=== PATIENT | male | born 1975 | race Caucasian/White ===

== ENCOUNTER → 2023-03-04 15:47 | Outpatient (CLI) | payer OTHER, SELFPAY ==
--- NOTE | ~2023-03-04 | MR_ITS ---
EXAMINATION: MR knee RT wo con DATE: 03/04/2023 16:16 INDICATION: Acute onset medial sided right knee pain TECHNIQUE: Magnetic resonance imaging (MRI) of the right knee was performed without intravenous contr ast. Sequences included coronal PD-weighted FSE, coronal PD-weighted FS FSE, sagittal T2-weighted FS E, sagittal PD-weighted FS FSE and axial PD weighted fat saturated FSE. COMPARISON: None. FINDINGS: Medial compartment: Complex tear of the medial meniscus with a longitudinal horizontal tear plane extending to the inferi or articular surface of the posterior body and posterior horn. There is a secondary radial tear plane versus more irregular degeneration involving the meniscus inferior to the tear plane at the posterio r horn. There is a small para meniscal cyst originating at the periphery of the posterior horn . To o riginate at the level of the radial tear and tracking 2.5 cm laterally to posterior to the tibial ins ertion of the posterior cruciate ligament. The cyst measures up to 11 x 5 mm maximal orthogonal dimen sions. Partial-thickness chondral ulceration involving less than 50% the cartilage thickness along the anter ior to central weightbearing medial femoral condyle with a deeper fissure without degenerative subcho ndral changes at the posterior aspect of the region of ulceration. There is additional chondral ulcer ation and deep fissuring with underlying cystlike and edema-like marrow signal changes and small mary grace inal osteophytes along the posterior and medial margins of the medial tibial plateau underlying the r egion of the meniscal tear. Lateral compartment: Similar complex tear of the lateral meniscus with longitudinal horizontal tear extending to the super ior articular surface of the body and posterior horn of the lateral meniscus and small radial tear in volving the free edge and inner half of the midportion of the posterior horn. Additional partial thickness chondral ulceration and fissuring involving up to 50% the cartilage thic kness at the anterior to central weightbearing medial femoral condyle and central to posterior aspect of the lateral tibial plateau, both without degenerative subchondral changes. Patellofemoral compartment: Full-thickness chondral ulceration with prominent underlying cortical irregularity and subarticular c ystlike changes with surrounding sclerosis and edema-like signal change involving the medial half of the mid to inferior aspect of the lateral trochlea extending to the trochlear groove. Less severe par tial thickness chondral fissuring with additional subarticular edema-like signal change and likely de veloping cystlike change at the central aspect of the medial trochlea. Moderate-sized region of mild partial thickness patellar cartilage loss with deeper fissuring but without degenerative subchondral changes centered at the midpoint of the apical ridge. Ligaments and tendons: Anterior and posterior cruciate ligaments are normal. Thickening of the proximal medial collateral li gament consistent with scarring related to chronic sprain with more clearly delineated partial tear a long its anterior margin but without surrounding soft tissue edema to suggest acute injury. The fibul ar collateral ligament is normal. There are tendon is normal. Mild quadriceps tendinopathy without te ar. The visualized medial and lateral hamstring tendons as well as the iliotibial band are normal. Fluid: Small knee joint effusion with mild synovitis at the suprapatellar pouch. Additional synovitis seen o n the posterior inferior margin of Hoffa's fat pad and at the posterior recesses. No loose osteochond ral bodies identified. Osseous/other: Bone alignment is normal. No fracture or pathologic marrow replacing process. IMPRESSION: 1. Complex tears of the medial and lateral menisci. 2. 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
== END ==
PROVIDERS: PCP Internal Medicine; Visit Provider Physician Assistant
DX: S83.241A Other tear of medial meniscus, current injury, right knee, initial encounter (principal); T14.90XA Injury, unspecified, initial encounter
CPT/HCPCS: 73721

== ENCOUNTER 2023-05-27 07:58 | Outpatient (CLI) | payer OTHER, SELFPAY ==
[2023-05-27 11:33] LABS: Eosinophils Absolute Auto 0.1 K/mm3 (0-0.3); Eosinophils Percent Auto 2.3 % (0-4.4); Hemoglobin 17.2 g/dL (14.0-18.0); Immature Granulocyte Absolute 0.01 K/mm3 (0.00-0.031); Immature Granulocyte Percent A 0.3 % (0-0.5); Lymphocytes Absolute Auto 1.44 K/mm3 (0.9-3.2); Lymphocytes Percent Auto 37.5 % (18.3-44.2); Mean Corpuscular HGB Conc 33.7 g/dl (32-36); Mean Corpuscular Hemoglobin 31.9 pg (26-34); Mean Corpuscular Volume 94.4 fl (80-100); Mean Platelet Volume 9.5 fl (7.4-10.4); Monocytes Absolute Auto 0.5 K/mm3 (0.1-0.6); Monocytes Percent Auto 12.2 % (2.6-8.5); Neutrophils Absolute Auto 1.8 K/mm3 (1.3-6.7); Neutrophils Percent Auto 46.7 % (45.5-73.1); Platelet Count Result 207 k/mm3 (150-375); Red Cell Distribution Width 12.6 % (11.5-14.5); White Blood Count 3.8 K/mm3 (4.5-10.0)
[2023-05-27 11:59] LABS: Alanine Aminotransferase 21 U/L (6-50); Albumin Level 3.9 g/dL (3.5-5.1); Alkaline Phosphatase 62 U/L (38-126); Anion Gap 8 mmol/L (8-16); Aspartate Amino Transferase 73 U/L (17-59); Bilirubin,Total 0.8 mg/dL (0.2-1.3); Blood Urea Nitrogen 17 mg/dL (9-20); Calcium 8.6 mg/dL (8.4-10.2); Carbon Dioxide 30 mmol/L (22-30); Chloride 101 mmol/L (98-107); Estimated Glomerular Filt Rate > 60; Glucose 78 mg/dL (65-110); Potassium 4.2 mmol/L (3.4-5.0); Sodium 139 mmol/L (137-145)
[2023-05-27 12:33] LABS: Prostate Specific Antigen 0.7 ng/mL (< OR = 4.0)
[2023-05-31 14:15] LABS: Testosterone Free 311.2; Testosterone Total 1140
== END 2023-05-27 07:59 | disposition home or self-care (01) ==
LOC: ANHGOSHLAB 08:01
PROVIDERS: PCP Internal Medicine; Visit Provider Internal Medicine
DX: Z51.81 Encounter for therapeutic drug level monitoring (principal); Z79.890 Hormone replacement therapy; D75.1 Secondary polycythemia; R79.89 Other specified abnormal findings of blood chemistry
CPT/HCPCS: 36415; 80053; 84153; 84402; 84403; 85025

== ENCOUNTER 2023-12-29 07:52 | Outpatient (CLI) | payer OTHER, SELFPAY ==
[2023-12-29 14:40] LABS: Hematocrit 53.7 % (42.0-52.0); Mean Corpuscular HGB Conc 33.5 g/dl (32-36); Mean Corpuscular Hemoglobin 31.9 pg (26-34); Mean Platelet Volume 9.4 fl (7.4-10.4); Platelet Count Result 212 k/mm3 (150-375); Red Blood Count 5.65 M/mm3 (4.6-6.20); Red Cell Distribution Width 12.4 % (11.5-14.5); White Blood Count 4.2 K/mm3 (4.5-10.0)
[2023-12-29 15:24] LABS: Alanine Aminotransferase 16 U/L (6-50); Albumin Level 4.3 g/dL (3.5-5.1); Alkaline Phosphatase 71 U/L (38-126); Anion Gap 5 mmol/L (8-16); Aspartate Amino Transferase 92 U/L (17-59); Bilirubin,Total 1.6 mg/dL (0.2-1.3); Blood Urea Nitrogen 20 mg/dL (9-20); Calcium 9.4 mg/dL (8.4-10.2); Carbon Dioxide 33 mmol/L (22-30); Chloride 102 mmol/L (98-107); Estimated Glomerular Filt Rate > 60; Glucose 77 mg/dL (65-110); Potassium 4.5 mmol/L (3.4-5.0); Sodium 140 mmol/L (137-145)
[2024-01-03 12:13] LABS: Testosterone Free 290.4 pg/mL (35.0-155.0); Testosterone Total 1139 ng/dL (250-1100)
== END 2023-12-29 07:53 | disposition home or self-care (01) ==
LOC: ANHGOSHLAB 07:53
PROVIDERS: PCP Internal Medicine; Visit Provider Internal Medicine
DX: R79.89 Other specified abnormal findings of blood chemistry (principal); D75.1 Secondary polycythemia; Z79.890 Hormone replacement therapy; Z51.81 Encounter for therapeutic drug level monitoring
CPT/HCPCS: 36415; 80053; 84402; 84403; 85027

== ENCOUNTER 2024-01-13 07:56 | Outpatient (CLI) | payer OTHER, SELFPAY ==
--- NOTE | ~2024-01-13 | US_ITS ---
Limited Abdominal Sonogram: Real-time sonographic imaging of the right upper quadrant was performed. Clinical History: Abnormal serum enzyme levels Findings: The liver appears normal with no evidence of mass lesion or bile duct dilatation. Main por moreno vein demonstrates normal direction of flow. The gallbladder is well distended, and appears normal with no evidence of gallstone or wall thickening. The common bile duct measures 3 mm. The visualize d pancreas, aorta, and IVC are unremarkable. Impression: No significant abnormality seen. Reviewed, dictated and finalized at location M. Impression: No significant abnormality seen.
== END 2024-01-13 07:57 ==
LOC: GOSHIMG 07:57
PROVIDERS: PCP Internal Medicine; Visit Provider Internal Medicine
DX: R74.8 Abnormal levels of other serum enzymes (principal)
CPT/HCPCS: 76705

== ENCOUNTER 2024-02-08 07:54 | Outpatient (CLI) | payer OTHER, SELFPAY ==
[2024-02-08 19:49] LABS: Iron 131 ug/dL (49-181)
[2024-02-08 20:13] LABS: Percent Iron Saturation 39 % (20-50)
[2024-02-08 20:17] LABS: Hepatitis B Surface Antigen Negative (Negative)
[2024-02-08 20:35] LABS: Hepatitis C Virus Antibody Negative (Negative)
[2024-02-10 02:09] LABS: HIV 1 2 Ag Ab 4th Gen w Rflxs NON-REACTIVE (NON-REACTIVE)
== END 2024-02-08 07:55 | disposition home or self-care (01) ==
LOC: ANHGOSHLAB 07:56
PROVIDERS: PCP Internal Medicine; Visit Provider Internal Medicine
DX: R74.8 Abnormal levels of other serum enzymes (principal)
CPT/HCPCS: 36415; 82728; 83540; 83550; 84443; 86803; 87340; 87389

== ENCOUNTER 2024-08-30 08:11 | Outpatient (CLI) | payer OTHER, SELFPAY ==
[2024-08-30 14:12] LABS: Basophils Percent Auto 0.7 % (0.2-1.2); Eosinophils Absolute Auto 0.1 K/mm3 (0-0.3); Eosinophils Percent Auto 2.5 % (0-4.4); Hematocrit 50.6 % (42.0-52.0); Hemoglobin 17.5 g/dL (14.0-18.0); Immature Granulocyte Absolute 0.02 K/mm3 (0.00-0.031); Immature Granulocyte Percent A 0.4 % (0-0.5); Lymphocytes Absolute Auto 1.44 K/mm3 (0.9-3.2); Lymphocytes Percent Auto 25.4 % (18.3-44.2); Mean Corpuscular HGB Conc 34.6 g/dl (32-36); Mean Corpuscular Hemoglobin 32.4 pg (26-34); Mean Corpuscular Volume 93.7 fl (80-100); Mean Platelet Volume 9.7 fl (7.4-10.4); Monocytes Absolute Auto 0.7 K/mm3 (0.1-0.6); Monocytes Percent Auto 11.6 % (2.6-8.5); Neutrophils Absolute Auto 3.4 K/mm3 (1.3-6.7); Neutrophils Percent Auto 59.4 % (45.5-73.1); Platelet Count Result 210 k/mm3 (150-375); Red Cell Distribution Width 12.8 % (11.5-14.5); White Blood Count 5.7 K/mm3 (4.5-10.0)
[2024-08-30 18:39] LABS: Alanine Aminotransferase 16 U/L (6-50); Albumin Level 4.2 g/dL (3.5-5.1); Alkaline Phosphatase 55 U/L (38-126); Anion Gap 5 mmol/L (4-12); Aspartate Amino Transferase 54 U/L (17-59); Blood Urea Nitrogen 20 mg/dL (9-20); Calcium 9.5 mg/dL (8.4-10.2); Carbon Dioxide 33 mmol/L (22-30); Chloride 100 mmol/L (98-107); Cholesterol 207 mg/dL (0-200); Estimated Glomerular Filt Rate 59; Glucose 71 mg/dL (65-110); HDL Direct 44 mg/dL; Potassium 4.3 mmol/L (3.4-5.0); Sodium 138 mmol/L (137-145); Triglycerides 183 mg/dL (<150)
[2024-08-30 18:51] LABS: LDL Cholesterol Direct 102 mg/dL
[2024-08-30 19:09] LABS: Prostate Specific Antigen 0.8 ng/mL (< OR = 4.0)
== END 2024-08-30 08:12 | disposition home or self-care (01) ==
LOC: ANHGOSHLAB 08:13
PROVIDERS: PCP Internal Medicine; Visit Provider Internal Medicine
DX: R74.8 Abnormal levels of other serum enzymes (principal); D75.1 Secondary polycythemia; E78.1 Pure hyperglyceridemia; R79.89 Other specified abnormal findings of blood chemistry; Z79.890 Hormone replacement therapy; Z51.81 Encounter for therapeutic drug level monitoring; Z12.5 Encounter for screening for malignant neoplasm of prostate
CPT/HCPCS: 36415; 80053; 80061; 82248; 84153; 84402; 84403; 85025; G0103

== ENCOUNTER 2025-05-16 08:26 | Outpatient (CLI) | payer OTHER, SELFPAY ==
--- OUTSIDE RECORDS SUMMARY | 2025-05-16 08:33 | XMS_ITS | Clinical Summary ---
Author Organization [facility] Address [address] [place] [address] Care Team Providers Care Site Damage Prevention Technician Name Role Phone Gilbert Conklin DO Primary Care Provider [phone] Niki Bedolla Unavailable [phone] Allergies No known active allergies Medications testosterone cypionate (DEPO-TESTOTERO NE) 200 mg/mL injection INJECT 150 MG (0.75 ML) INTRAMUSCULARLY WEEKLY 01/07/20 21 Active BD Luer-Sara Syringe 3 mL 25 gauge x 1 syringe USE TO INJECT TESTOSTERONE 01/17/20 22 Active vilazodone (VIIBRYD) 20 mg tabletIndicatio ns:major depressive disorder Take 1 tablet (20 mg total) by mouth daily Active traZODone (DESYREL) 50 mg tablet TAKE 1/2 TO 1 TABLET BY MOUTH AT BEDTIME NEEDED 02/12/20 23 Active lamoTRIgine (LaMICtal) 100 mg tablet Take 1 tablet (100 mg total) by mouth 2 (two) times a day 01/19/20 24 Active ARIPiprazole (ABILIFY) 5 mg tablet Take 1 tablet (5 mg total) by mouth daily 02/03/20 24 Active guaiFENesin ER (MUCINEX) 600 mg 12 hr tablet Take 2 tablets (1,200 mg total) by mouth 2 (two) times a day Active cetirizine 10 mg capsule Take by mouth daily Active ibuprofen 200 mg tab/cap Take 1 tablet/capsule (200 mg total) by mouth every 6 (six) hours as needed for pain Active turmeric root extract 500 mg capsule Take by mouth daily Active glucosamine HCl 500 mg tablet Take by mouth daily Active creatine monohydrate 5,000 mg powder in packet Take by mouth Active ascorbic acid (VITAMIN C) 500 mg tablet,chewable Take 1 tablet/chew tab (500 mg total) by mouth 2 (two) times a day 60 tablet/chew tab 02/29/20 24 Active aspirin 81 mg enteric coated tabletIndicatio ns:prevention of thrombosis Take 1 tablet (81 mg total) by mouth 2 (two) times a day for 14 days 28 tablet 02/29/20 24 Active cholecalciferol (VITAMIN D-3) 2000 unit capsule Take 1 capsule (2,000 Units total) by mouth daily 30 capsule 02/29/20 24 Active HYDROcodone-lloyd taminophen (NORCO) 5-325 mg per tabletIndicatio ns:Pain Take 1 tablet by mouth every 6 (six) hours as needed for pain 15 tablet 02/29/20 24 Active ondansetron (ZOFRAN) 4 mg tabletIndicatio ns:Prevention of Post-Operative Nausea and Vomiting Take 1 tablet (4 mg total) by mouth every 6 (six) hours as needed for nausea or vomiting 20 tablet 1 02/29/20 24 Active senna-docusate (PERICOLACE) 8.6-50 mg Take 1 tablet by mouth 2 (two) times a day as needed for constipation 30 tablet 1 02/29/20 24 Active Active Problems Problem Noted Date Diagnosed Date Acute medial meniscus tear of left knee 02/29/20 24 Complex tear of lateral meniscus of left knee Anaclitic depression 11/22/2014 Attention deficit disorder (ADD) without hyperac tivity 11/22/2014 Restless legs 11/22/2014 Fatigue 11/22/2014 Sleep-wake schedule disorder, 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 Chronic infection of sinus 11/19/2014 Immunizations Immunization Administration Dates Next Due Influenza, Trivalent, IM (MDV) 07/25/2014 Pfizer SARS-CoV-2 Monovalent Vaccination (12+ Yrs) PURPLE 01/02/2021,12/12/2020 Tdap 08/21/2020 Surgical History Surgery Date Site/Laterality Comments NV TONSILLECTOMY & ADENOIDEC LACI <AGE 12 Tonsillectomy With Adenoidectomy - (Added by TW Conv) VASECTOMY Medical History Medical History Date Comments Attention deficit disorder (ADD) without hyperac tivity 11/22/2014 Anaclitic depression 11/22/2014 Bipolar disorder Family History Medical History Relation Name Comments Heart disease Father Family history of cardiac disorder - (Added by TW Conv) Relation Name Status Comments Father Social History Tobacco Use Types Packs/Day Years Used Date Smoking Tobacco: Former Cigarettes 2 - 2014 Smokeless Tobacco: Never Tobacco Cessation:Counseling Given: Not Answered AUDIT-C Answer Date Recorded Q1: How often do you have a drink containing alc ohol? 2-4 times a month 02/25/2024 Q2: How many drinks containi ng alcohol do you have on a typical day when you are drinking? 3 or 4 02/25/2024 Frequency of Binge Drinking Not on file 02/08 Personal Safety Answer Date Recorded Have you ever been in or are you currently in a harmful physical or emotional relationship or is someone making you feel afraid or unsafe? 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 Gender Identity Not on file Sexual Orientation Not on file Obstetrics History Last Filed Vital Signs Vital Sign Reading Time Taken Comments Blood Pressure 99/68 05/09/2024 8:20 AM CDT Pulse 78 05/09/2024 8:20 AM CDT Temperature 36.2 C (97.2 F) 02/29/2024 5:02 PM CDT Respiratory Rate 18 02/29/2024 5:02 PM CDT Oxygen Saturation 100% 02/29/2024 5:02 PM CDT Inhaled Oxygen Concentration - - Weight 99.3 kg (219 lb) 05/09/2024 8:20 AM CDT Height 189.2 cm (6' 2.5) 05/09/2024 8:20 AM CDT Body Mass Index 27.74 05/09/2024 8:20 AM CDT Plan of Treatment Health Maintenance Due Date Last Done Comments Colon Cancer Screening-Colonoscopy 1976 Depression Screening 1976 Hepatitis C Screening 1976 Hepatitis B Screening 1994 Regular Well Visit/Exam 18-64 1994 Covid-19 Vaccine (2023-2 5 season) 2024 01/02/2021, 12/12/2020 Influenza Vaccine (#1) 2025 07/25/2014 DTaP/Tdap/Td Vaccine (2 - Td or Tdap) 08/21/2030 08/21/2020 Pneumococcal vaccine <65 Aged Out No longer eligible based on patient's age to complete this topic Insurance [facility] Care Teams Site Damage Prevention Technician Relationship Specialty Start Date End Date Gilbert Conklin DO PCP - General Internal Medicine 04/10/22 Niki Bedolla PA [address] [place] [address] DR ROSENBERG [address] [place] [id number] Physician Solar Tech Orthopedic Surgery 02/29/24
--- OUTSIDE RECORDS SUMMARY | 2025-05-16 08:34 | XMS_ITS | Clinical Summary ---
Author Organization [facility] Address [address] [place] [address] Care Team Providers Care Meter Attendant Name Role Phone Unavailable Primary Care Provider Unavailabl e Source Comments [facility],non-owned Affiliates and Associated Physician Practices is amultiple site organization consisting of ambulatory clinics and hospital sitesin [place], [place] and [place]. This disclosure is being madepursuant to the Care Everywhere program and may not contain all information available regarding this patient. Last updated 18.[facility] Allergies No known active allergies Medications * Be aware that medications may not be up to date on this document. Alwaysverify current medications with the patient. escitalopram (LEXAPRO) 5 MG/5ML oral solution Take 5 mg by mouth once daily Active LAMOTRIGINE PO Activ e Family History Relation Name Status Comments Father Alive Mother Alive Social History Tobacco Use Types Packs/Day Years Used Date Smoking Tobacco: Former Smokeless Tobacco: Never Sex and Gender Information Value Date Recorded Sex Assigned at Not on file Legal Sex Male 9:08 AM CDT Gender Identity Not on file Sexual Orientation Not on file Last Filed Vital Signs Vital Sign Reading Time Taken Comments Blood Pressure 142/76 03/11/2018 11:39 AM CDT Pulse 60 03/11/2018 11:39 AM CDT Temperature 36.9 C (98.4 F) 03/11/2018 11:39 AM CDT Respiratory Rate 16 03/11/2018 11:39 AM CDT Oxygen Saturation 97% 03/11/2018 11:39 AM CDT Inhaled Oxygen Concentration - - Weight 102.1 kg (225 lb) 03/11/2018 11:39 AM CDT Height 190.5 cm (6' 3) 03/11/2018 11:39 AM CDT Body Mass Index 28.12 03/11/2018 11:39 AM CDT Plan of Treatment Health Maintenance Due Date Last Done Comments COLOGUARD (AGES 45-75) - COL ON CA SCREENING 1976 COLON MONITORING 1976 COLONOSCOPY - COLON CA SCREENING 1976 CT COLONOGRAPHY - COLON CA SCREENING 1976 Colorectal Cancer Screening 1976 FIT - COLON CA SCREENING 1976 FLEX SIG - COLON CA SCREENING 1976 LIPID TESTING 1976 HIV SCREENING 1991 HEPATITIS C SCREENING 03/09/1994 DTAP/TDAP/TD VACCINES (1 - Tdap) 1995 HEPATITIS B VACCINE (1 of 3 - 19+ 3-dose series) 1995 SCREENING FOR DIABETES 03/11/2018 COVID-19 VACCINE (1 - 2023-2 5 season) 2024 DEPRESSION SCREENING 10/11/2024 INFLUENZA VACCINE (#1) 2025 ZOSTER VACCINE (1 of 2) 2026 HIB VACCINE Aged Out No longer eligi ble based on patient's age to complete this topic HPV VACCINE Aged Out No longer eligi ble based on patient's age to complete this topic MENINGOCOCCAL (Group B) VACC INE SHARED DECISION-MAKING Aged Out No longer eligibl e based on patient's age to complete this topic MENINGOCOCCAL GROUPS A/C/Y/W VACCINE Aged Out No longer eligible b ased on patient's age to complete this topic Insurance [employer]
--- OUTSIDE RECORDS SUMMARY | 2025-05-16 08:34 | XMS_ITS | Patient Health Record ---
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 Name Role Phone Gilbert Conklin DO Primary Care Provider Armand Gagnon Unavailable [phone] Hebert Dowell Unavailable [phone] Allergies No Known Allergies Results Component Value Reference Range Notes UDT Reviewed date:04/16/2025 10:00:06 AM Interpretation: Performing Lab: Notes/Report: THC N 0 - 50 ng/ml Cocaine N 0 - 300 ng/ml Amphetamine N 0 - 1000 ng/ml Buprenorphine (BUP) N 0 - 10 ng/ml Secobarbital (Bar) N 0 - 300 ng/ml Oxazepam (BZO) N 0 - 300 ng/ml 5-iikmjrdvkn-6,2-nmfbycor-7,3-diphenylpyrrolidine (BETTY P) N 0 - 300 ng/ml Methamphetamine (MET) N 0 - 1000 ng/ml Methylenedioxymethamphetamine (MDMA) N 0 - 500 ng/ml Morphine (MOP 300/[id number]) N 0 - 300 ng/ml Methadone (MTD) N 0 - 300 ng/ml Phencyclidine (PCP) N 0 - 25 ng/ml Nortriptyline (TCA) N 0 - 1000 ng/ml Oxycodone N 0 - 300 ng/ml Reason For Referral No Information Medications Medication SIG (Take, Route, Frequency, Duration) Notes Start Date End Date Status LORazepam 0.5 MG 1 tablet Oral Once a day; Duration: 30 days As needed 04/12/2025 Active lamoTRIgine 100 MG take 0.5 tablet in morning and 1 tablet in evening Oral see sign; Duration: 30 days Active Rexulti 1 MG 1 tablet Orally Once a day; Duration: 30 days Active Testosterone Cypionate 200 MG/ML 5 ML Intramuscular once a week 01/11/2024 Active traZODone HCl 50 MG 1 tablet at bedtime Oral Once a day; Duration: 90 days As needed Active Multivitamin - 1 tablet Orally Once a day Active Vilazodone HCl 20 MG 1 TABLET WITH FOOD ORAL ONCE A DAY 30 DAYS; Duration: 90 Active traZODone HCl 50 MG 1-2tablet at bedtime Oral Once a day; Duration: 90 days As needed Active Vilazodone HCl 40 MG 1 tablet with food Oral Once a day; Duration: 90 days Active Eszopiclone 3 MG Oral 01/11/2024 No t-Taking Propranolol HCl 10 MG 1 tablet Orally three times a day; Duration: 30 days As needed 07/11/2024 Not-Taking Immunizations Vaccine Route Administration Date Status Comme nts Influenza, seasonal, injecta ble, preservative free, 3 yrs and above Unknown 07/25/2014 Administered Tdap Unknown 08/21/2020 Administered Influenza, injectable, MDCK, preservative free Unknown 08/27/2023 Administered Influenza virus vaccine, quadrivalent (IIV4), split virus, 0.25 mL dosage Unknown 08/22/2018 Administered Pfizer Biontech Covid-19 Vac cine 2nd dose Unknown 12/12/2020 Administered Pfizer Biontech Covid-19 Vac cine 2nd dose Unknown 01/02/2021 Administered Pfizer Biontech Covid-19 Vac cine 2nd dose Unknown 09/22/2021 Administered Social History Tobacco Use: Social History Observation Description Date Details (start date - stop date) Current some da y smoker 04/10/2024 - NA Sex Assigned At : Social History Observation Description Sex Assigned At Male Tobacco Control (Standard) Question Answer Notes Tobacco use: Current some day smoker When did you start smoking? 04/10/2024 AUDIT-C (Standard) Question Answer Notes Did you have a drink contain ing alcohol in the past year? Yes How many drinks did you have on a typical day when you were drinking in the past year? 1 or 2 drinks (0 point) How often did you have a dri nk containing alcohol in the past year? 2 to 4 times a month (2 points) Problems Problem Type SNOMED Code ICD Code Onset Dates Problem Status W/U Status Risk Notes Problem Generalized anxiety disorder (F41.1) 07/12/2023 Active confirmed Problem Primary insomnia (7153417) Primary insomnia (F51.01) 07/12/2023 Active confirmed Problem Bipolar 1 disorder (475916794) Bipolar 1 disorder (F31.9) Active confirmed Problem Depressed bipolar disorder (F31.9) Active confirmed Problem Suicidal ideation (5047389) Suicidal ideation (R45.851) Active confirmed Vital Signs Heart Rate 90 /min 04/12/2025 Temperature 98.4 degrees Fahrenheit 07/11/2024 Height-cm 190.50 cm 04/12/2025 Blood pressure diastolic 83 mm Hg 04/12/2025 Weight-kg 102.06 kg 04/12/2025 Height 75.00 in 04/12/2025 Blood pressure systolic 126 mm Hg 04/12/2025 Weight 225 lbs 04/12/2025 BMI 28.12 kg/m2 04/12/2025 Encounters Encounter Location Date Provider Diagnosis [facility], [facility] [address] [place] [address] 07/11/2024 Hebert Clubb Bipolar 1 disorder F31.9 ; Suicidal ideation R45.851 and Generalized anxiety disorder F41.1 [facility] [employer] [facility] [address] [address] 08/03/2024 Armand Orellana [facility] [employer] [facility] [address] [place] [address] 08/07/2024 Armand Orellana Primary insomnia F51 .01 ; Generalized anxiety disorder F41.1 and Depressed bipolar disorder F31.9 [facility] [employer] [facility] [address] [place] [address] 09/18/2024 Armand Orellana Primary insomnia F51 .01 ; Generalized anxiety disorder F41.1 and Depressed bipolar disorder F31.9 [facility] [employer] [facility] [address] [place] [address] 11/01/2024 Armand Orellana Primary insomnia F51 .01 ; Generalized anxiety disorder F41.1 and Depressed bipolar disorder F31.9 [facility] [employer] [facility] [address] [place] [address] 11/28/2024 Armand Orellana Primary insomnia F51 .01 ; Generalized anxiety disorder F41.1 and Depressed bipolar disorder F31.9 [facility] [address] [place] [address] 2025 Armand Orellana Encounter for screen ing for cardiovascular disorders Z13.6 ; Primary insomnia F51.01 ; Generalized anxiety disorder F41.1 and Depressed bipolar disorder F31.9 [facility] [employer] [facility] [address] [place] [address] 04/12/2025 Armand Orellana Negative depression screening Z13.31 ; Depressed bipolar disorder F31.9 ; Encounter for screening for cardiovascular disorders Z13.6 ; Primary insomnia F51.01 and Generalized anxiety disorder F41.1 [facility] [employer] [facility] [address] [place] [address] 03/09/2025 Armand Orellana Assessments Encounter Date Diagnosis (ICD Code) Assessment Notes Treatment Notes Treatment Clinical Notes Section Notes 07/11/2024 Bipolar 1 disorder (ICD-10 - F31.9) 1. Major Depressive Disorder, recurrent, severe - Increase vilazodone from 20mg to 40mg daily. - Hold off on trazodone for now due to oversleeping. - Continue aripiprazole 5mg daily and lamotrigine 100mg twice daily. - Follow up in 2 weeks to assess vilazodone dose increase. 2. Generalized Anxiety Disorder - Prescribe propranolol 10mg three times daily as needed for anxiety/panic attacks. - Educate on propranolol use and monitoring heart rate. - Encourage use of [employer] norma for direct provider communication. 3. Bipolar Disorder (Type 2) - Continue lamotrigine 100mg twice daily and aripiprazole 5mg daily. - Monitor for manic/hypomanic symptoms. - He reports past hyper-focus/rac ing thoughts episodes >4 days <7 days. 4. Sleep Disturbances - Hold off on trazodone due to oversleeping currently. - Reassess sleep patterns at follow up, consider restarting trazodone if needed. 5. Suicidal Ideation - Provide crisis number (157) for immediate support. - Monitor suicidal thoughts, adjust treatment plan accordingly. - He reports recent suicidal thoughts due to work/relationsh ip stress. - educated when to seek emergency services. 6. Laboratory Tests - Encourage scheduling regular bloodwork including thyroid studies. - Last labs approximately 6 months ago. 7. Follow Up - Schedule follow up in 2 weeks. - Assess response to adjusted treatment plan. - He to use [employer] for direct communication before next visit if needed. 07/11/2024 Suicidal ideation (ICD-10 - R45.851) 1. Major Depressive Disorder, recurrent, severe - Increase vilazodone from 20mg to 40mg daily. - Hold off on trazodone for now due to oversleeping. - Continue aripiprazole 5mg daily and lamotrigine 100mg twice daily. - Follow up in 2 weeks to assess vilazodone dose increase. 2. Generalized Anxiety Disorder - Prescribe propranolol 10mg three times daily as needed for anxiety/panic attacks. - Educate on propranolol use and monitoring heart rate. - Encourage use of [employer] norma for direct provider communication. 3. Bipolar Disorder (Type 2) - Continue lamotrigine 100mg twice daily and aripiprazole 5mg daily. - Monitor for manic/hypomanic symptoms. - He reports past hyper-focus/rac ing thoughts episodes >4 days <7 days. 4. Sleep Disturbances - Hold off on trazodone due to oversleeping currently. - Reassess sleep patterns at follow up, consider restarting trazodone if needed. 5. Suicidal Ideation - Provide crisis number (988) for immediate support. - Monitor suicidal thoughts, adjust treatment plan accordingly. - He reports recent suicidal thoughts due to work/relationsh ip stress. - educated when to seek emergency services. 6. Laboratory Tests - Encourage scheduling regular bloodwork including thyroid studies. - Last labs approximately 6 months ago. 7. Follow Up - Schedule follow up in 2 weeks. - Assess response to adjusted treatment plan. - He to use [employer] for direct communication before next visit if needed. 08/07/2024 Primary insomnia (ICD-10 - F51.01) cont lunesta 3mg hs prn 1. Major Depressive Disorder: - Patient reports worsening depression over the past few months, despite an increase in Viibryd dosage from 20 to 40 mg. - No recent manic or hypomanic episodes reported. Plan: - Discontinue Abilify, as it has not been effective. - Start Vraylar, an atypical antipsychotic, for depression management. - Continue Viibryd at 40 mg and Lamotrigine at 100 mg twice a day. - Monitor for any side effects and adjust the time of day for Vraylar administration as needed. - Schedule a follow-up appointment in 2 weeks to assess the effectiveness of the new medication. 2. Anxiety: - Patient reports using Lorazepam once or twice a week for chest tightness. - History of using Propranolol for performance anxiety. Plan: - Continue the current use of Lorazepam as needed, with caution due to its addictive potential. - Encourage the patient to discuss any increased anxiety or new stressors with their therapist, Rodolfo. 3. Sleep: - Patient reports adequate sleep and has discontinued the use of Lunesta and Trazodone. Plan: - Continue to monitor sleep quality and address any sleep disturbances in future appointments. . 09/18/2024 Primary insomnia (ICD-10 - F51.01) cont trazodone prn 1. Major Depressive Disorder: - Patient reports some improvement in mood and motivation since the last visit but still feels a little off. - PHQ-9 score has decreased from 17 to 8, indicating improvement. Plan: - Increase Vraylar from 1.5 mg to 3 mg daily. - Decrease Vilazodone from 40 mg to 20 mg daily. - Continue Lamotrigine. - Reassess in one month. 2. Anxiety: - Patient reports less constant anxiety and chest tightness. Plan: - Continue Lorazepam as needed for anxiety. - Refill prescription. - Reassess in one month. 3. Insomnia: - Patient reports trouble staying asleep but has been using Trazodone with better results than Lunesta. Plan: - Continue Trazodone for sleep as needed. - Discontinue Lunesta. - Reassess in one month. 4. Social Functioning: - Patient has started working out again and has been more involved in activities. Plan: - Encourage continued engagement in social activities and exercise to improve mood and motivation. - Reassess in one month. Follow-up: - Schedule a follow-up appointment in one month to monitor progress and adjust medications as needed. 11/01/2024 Primary insomnia (ICD-10 - F51.01) cont trazodone prn 11/28/2024 Primary insomnia (ICD-10 - F51.01) cont trazodone prn 2025 Encounter for screening for cardiovascular disorders (ICD-10 - Z13.6) 04/12/2025 Depressed bipolar disorder (ICD-10 - F31.9) 04/12/2025 Negative depression screening (ICD-10 - Z13.31) 07/11/2024 Generalized anxiety disorder (ICD-10 - F41.1) 1. Major Depressive Disorder, recurrent, severe - Increase vilazodone from 20mg to 40mg daily. - Hold off on trazodone for now due to oversleeping. - Continue aripiprazole 5mg daily and lamotrigine 100mg twice daily. - Follow up in 2 weeks to assess vilazodone dose increase. 2. Generalized Anxiety Disorder - Prescribe propranolol 10mg three times daily as needed for anxiety/panic attacks. - Educate on propranolol use and monitoring heart rate. - Encourage use of [employer]a for direct provider communication. 3. Bipolar Disorder (Type 2) - Continue lamotrigine 100mg twice daily and aripiprazole 5mg daily. - Monitor for manic/hypomanic symptoms. - He reports past hyper-focus/rac ing thoughts episodes >4 days <7 days. 4. Sleep Disturbances - Hold off on trazodone due to oversleeping currently. - Reassess sleep patterns at follow up, consider restarting trazodone if needed. 5. Suicidal Ideation - Provide crisis number (988) for immediate support. - Monitor suicidal thoughts, adjust treatment plan accordingly. - He reports recent suicidal thoughts due to work/relationsh ip stress. - educated when to seek emergency services. 6. Laboratory Tests - Encourage scheduling regular bloodwork including thyroid studies. - Last labs approximately 6 months ago. 7. Follow Up - Schedule follow up in 2 weeks. - Assess response to adjusted treatment plan. - He to use [employer] for direct communication before next visit if needed. 04/12/2025 Encounter for screening for cardiovascular disorders (ICD-10 - Z13.6) 11/28/2024 Generalized anxiety disorder (ICD-10 - F41.1) 2025 Primary insomnia (ICD-10 - F51.01) cont trazodone prn 09/18/2024 Generalized anxiety disorder (ICD-10 - F41.1) 1. Major Depressive Disorder: - Patient reports some improvement in mood and motivation since the last visit but still feels a little off. - PHQ-9 score has decreased from 17 to 8, indicating improvement. Plan: - Increase Vraylar from 1.5 mg to 3 mg daily. - Decrease Vilazodone from 40 mg to 20 mg daily. - Continue Lamotrigine. - Reassess in one month. 2. Anxiety: - Patient reports less constant anxiety and chest tightness. Plan: - Continue Lorazepam as needed for anxiety. - Refill prescription. - Reassess in one month. 3. Insomnia: - Patient reports trouble staying asleep but has been using Trazodone with better results than Lunesta. Plan: - Continue Trazodone for sleep as needed. - Discontinue Lunesta. - Reassess in one month. 4. Social Functioning: - Patient has started working out again and has been more involved in activities. Plan: - Encourage continued engagement in social activities and exercise to improve mood and motivation. - Reassess in one month. Follow-up: - Schedule a follow-up appointment in one month to monitor progress and adjust medications as needed. 11/01/2024 Generalized anxiety disorder (ICD-10 - F41.1) 08/07/2024 Generalized anxiety disorder (ICD-10 - F41.1) 1. Major Depressive Disorder: - Patient reports worsening depression over the past few months, despite an increase in Viibryd dosage from 20 to 40 mg. - No recent manic or hypomanic episodes reported. Plan: - Discontinue Abilify, as it has not been effective. - Start Vraylar, an atypical antipsychotic, for depression management. - Continue Viibryd at 40 mg and Lamotrigine at 100 mg twice a day. - Monitor for any side effects and adjust the time of day for Vraylar administration as needed. - Schedule a follow-up appointment in 2 weeks to assess the effectiveness of the new medication. 2. Anxiety: - Patient reports using Lorazepam once or twice a week for chest tightness. - History of using Propranolol for performance anxiety. Plan: - Continue the current use of Lorazepam as needed, with caution due to its addictive potential. - Encourage the patient to discuss any increased anxiety or new stressors with their therapist, Rodolfo. 3. Sleep: - Patient reports adequate sleep and has discontinued the use of Lunesta and Trazodone. Plan: - Continue to monitor sleep quality and address any sleep disturbances in future appointments. . 08/07/2024 Depressed bipolar disorder (ICD-10 - F31.9) 1. Major Depressive Disorder: - Patient reports worsening depression over the past few months, despite an increase in Viibryd dosage from 20 to 40 mg. - No recent manic or hypomanic episodes reported. Plan: - Discontinue Abilify, as it has not been effective. - Start Vraylar, an atypical antipsychotic, for depression management. - Continue Viibryd at 40 mg and Lamotrigine at 100 mg twice a day. - Monitor for any side effects and adjust the time of day for Vraylar administration as needed. - Schedule a follow-up appointment in 2 weeks to assess the effectiveness of the new medication. 2. Anxiety: - Patient reports using Lorazepam once or twice a week for chest tightness. - History of using Propranolol for performance anxiety. Plan: - Continue the current use of Lorazepam as needed, with caution due to its addictive potential. - Encourage the patient to discuss any increased anxiety or new stressors with their therapist, Rodolfo. 3. Sleep: - Patient reports adequate sleep and has discontinued the use of Lunesta and Trazodone. Plan: - Continue to monitor sleep quality and address any sleep disturbances in future appointments. . 09/18/2024 Depressed bipolar disorder (ICD-10 - F31.9) 1. Major Depressive Disorder: - Patient reports some improvement in mood and motivation since the last visit but still feels a little off. - PHQ-9 score has decreased from 17 to 8, indicating improvement. Plan: - Increase Vraylar from 1.5 mg to 3 mg daily. - Decrease Vilazodone from 40 mg to 20 mg daily. - Continue Lamotrigine. - Reassess in one month. 2. Anxiety: - Patient reports less constant anxiety and chest tightness. Plan: - Continue Lorazepam as needed for anxiety. - Refill prescription. - Reassess in one month. 3. Insomnia: - Patient reports trouble staying asleep but has been using Trazodone with better results than Lunesta. Plan: - Continue Trazodone for sleep as needed. - Discontinue Lunesta. - Reassess in one month. 4. Social Functioning: - Patient has started working out again and has been more involved in activities. Plan: - Encourage continued engagement in social activities and exercise to improve mood and motivation. - Reassess in one month. Follow-up: - Schedule a follow-up appointment in one month to monitor progress and adjust medications as needed. 11/28/2024 Depressed bipolar disorder (ICD-10 - F31.9) 2025 Generalized anxiety disorder (ICD-10 - F41.1) 11/01/2024 Depressed bipolar disorder (ICD-10 - F31.9) 04/12/2025 Primary insomnia (ICD-10 - F51.01) cont trazodone prn 2025 Depressed bipolar disorder (ICD-10 - F31.9) 04/12/2025 Generalized anxiety disorder (ICD-10 - F41.1) 07/11/2024 Other Propranolol Oral Tablet (PROPRANOLOL - ORAL) material was printed Assessment and plan reviewed with patient Call for problems with medication, side effects or need for dosage change Compliance issues reviewed Discussed the risks/benefits of this medication Discussed medication side effects Return if symptoms worsen Treatment options reviewed. discussed that it can take weeks to see full therapeutic effects of psychotropic medications. discussed when to seek emergency services. discussed crisis prevention hotline 988. 1. Major Depressive Disorder, recurrent, severe - Increase vilazodone from 20mg to 40mg daily. - Hold off on trazodone for now due to oversleeping. - Continue aripiprazole 5mg daily and lamotrigine 100mg twice daily. - Follow up in 2 weeks to assess vilazodone dose increase. 2. Generalized Anxiety Disorder - Prescribe propranolol 10mg three times daily as needed for anxiety/panic attacks. - Educate on propranolol use and monitoring heart rate. - Encourage use of Laser[employer] norma for direct provider communication. 3. Bipolar Disorder (Type 2) - Continue lamotrigine 100mg twice daily and aripiprazole 5mg daily. - Monitor for manic/hypomanic symptoms. - He reports past hyper-focus/rac ing thoughts episodes >4 days <7 days. 4. Sleep Disturbances - Hold off on trazodone due to oversleeping currently. - Reassess sleep patterns at follow up, consider restarting trazodone if needed. 5. Suicidal Ideation - Provide crisis number (988) for immediate support. - Monitor suicidal thoughts, adjust treatment plan accordingly. - He reports recent suicidal thoughts due to work/relationsh ip stress. - educated when to seek emergency services. 6. Laboratory Tests - Encourage scheduling regular bloodwork including thyroid studies. - Last labs approximately 6 months ago. 7. Follow Up - Schedule follow up in 2 weeks. - Assess response to adjusted treatment plan. - He to use [employer] norma for direct communication before next visit if needed. 11/01/2024 Other 1. Anxiety and akathisia related to Vraylar 3 mg: - Discontinue Vraylar 3 mg due to increased anxiety and akathisia. - Patient tolerated Vraylar 1.5 mg better, but will try a different medication. Plan: - Discontinue Vraylar 3 mg. - Try a different medication. 2. Depression and low motivation: - Continue vilazodone 40 mg, as patient reported improvement after increasing the dose. Plan: - Initiate Rexulti 0.5 mg once daily for one week, then increase to 1 mg once daily as an adjunctive treatment for depression and anxiety. - Provide samples of Rexulti for the patient to try. 3. Insomnia: - Continue trazodone as needed for sleep. Plan: - Monitor sleep patterns and adjust medication if necessary. 4. Mood stabilization: - Continue lamotrigine for mood stabilization. Plan: - Monitor for any manic or hypomanic symptoms. 5. Anxiety management: - Continue lorazepam as needed for anxiety. Plan: - Refill lorazepam prescription. 6. Follow-up: - Schedule a follow-up appointment in one month to assess the patient's response to Rexulti and overall mental health status. 11/28/2024 Other 1. Anxiety: - Patient reports that anxiety is well-managed with the current medication regimen, including Rexulti 1 mg. - The patient is experiencing life changes, such as a potential new job and moving, but feels that anxiety is well-regulated. Plan: - Continue Rexulti 1 mg daily. - Follow up in 3 months or sooner if needed. 2. Insomnia: - Patient continues to experience difficulty sleeping and waking up at night. - Currently taking trazodone 50 mg at bedtime. Plan: - Increase trazodone to 50-100 mg at bedtime as needed for sleep. - Monitor for daytime drowsiness and adjust the dose accordingly. - Follow up in 3 months or sooner if needed. 3. Depression: - Patient reports no current depressive symptoms. - Currently on vilazodone 40 mg and lamotrigine. Plan: - Continue vilazodone 40 mg daily. - Continue lamotrigine as prescribed. - Follow up in 3 months or sooner if needed. 4. Medication management: - Patient is satisfied with the current medication regimen and reports no side effects. Plan: - Continue current medications: Rexulti 1 mg, trazodone 50-100 mg, vilazodone 40 mg, and lamotrigine as prescribed. - Monitor for any side effects or changes in mood. - Follow up in 3 months or sooner if needed. 5. Diazepam refill: - Patient reports having enough diazepam at this time. Plan: - No action needed at this time. - Follow up in 3 months or sooner if needed. 6. Appointment scheduling: - Patient to be contacted by the office to schedule a follow-up appointment in 3 months. Plan: - Request office staff to call the patient to schedule the appointment. 2025 Kalen Mcdermott presents with concerns about poor concentration, difficulty following conversations, and experiencing lightheadedness and shortness of breath. Cognitive difficulties Assessment: Patient reports experiencing poor concentration and difficulty following conversations, particularly in work settings with technical discussions. The onset appears to have been rapid. These symptoms may be related to the current medication regimen. Plan: - Continue Rexulti 1 mg daily - Continue Lamotrigine 100 mg twice daily - Continue Trazodone 50 mg one or two at bedtime as needed - Continue lorazepam as needed - Monitor cognitive symptoms and reassess medication efficacy at follow-up Cardiopulmonary symptoms Assessment: Patient reports experiencing shortness of breath and lightheadedness, which has led to cessation of physical activities such as hockey. The etiology of these symptoms is unclear and warrants further investigation. Plan: - Recommend comprehensive physical examination with primary care physician - Suggest cardiac and pulmonary evaluation - Advise laboratory tests including thyroid function and complete blood count to rule out anemia Testosterone replacement therapy Assessment: Patient continues testosterone replacement therapy. Regular monitoring of testosterone levels is important for optimal management. Plan: - Continue current testosterone regimen - Schedule testosterone level check next week as per 6-month follow-up protocol the note is transcribed using speech recognition software. It is a reflection of a visit with the patient. It might have some inaccuracy, including medication names and transcribing errors, though efforts have been made to correct them. 04/12/2025 Kalen Mcdermott presents with recurrent anxiety symptoms and reports improvement in concentration and focus after medication adjustment. Anxiety Disorder Assessment: Patient reports anxiety symptoms have crept up again recently. This increase in anxiety coincides with work-related events (a big workshop) and vacation planning. Patient acknowledges the possibility that current life stressors may be contributing to anxiety symptoms rather than medication-rela vera issues. Previous medication adjustment (decreasing lamotrigine) appears to have improved concentration and focus. Patient continues to experience some physical symptoms including chest pain, shortness of breath, and lightheadedness , though these are reported as better compared to previous encounters. Plan: - Continue vilazodone 40 mg daily - Continue lamotrigine at current dose (half tablet in morning, one tablet in evening) - Continue trazodone at bedtime for sleep - Refill alprazolam - Follow up in 6 weeks to reassess symptoms and medication efficacy Mood Disorder Assessment: Patient denies current hypomanic symptoms. Concentration and focus have improved since decreasing lamotrigine dose. Patient performed well during a work workshop, suggesting improved functioning. Sleep is reported as adequate with trazodone use. Plan: - Continue current medication regimen: - Vilazodone 40 mg daily - Lamotrigine (current dose) - Trazodone at bedtime - Rexulti - Reassess mood symptoms and medication efficacy at follow-up in 6 weeks the note is transcribed using speech recognition software. It is a reflection of a visit with the patient. It might have some inaccuracy, including medication names and transcribing errors, though efforts have been made to correct them. Plan Of Treatment Next Appt Details Provider Name:Armand brown, 05/25/2025 04:45:00 PM, [address], [place], [address], Insurance Providers Payer Name Payer Address Payer Phone Subscriber Number Group Number Insured Name Patient Relationship to Insured Coverage Start Date Coverage End Date [employer] [address] [place] [address] [id number] CJ MCDERMOTT Spouse - patient is the spouse of the insured Medical (General) History Medical History History ICD Code Problems: Bipolar II disorder Generalized anxiety disorder Long-term current use of drug therapy Primary insomnia , Past Psychiatric History: Bipolar Disord er undefined abdominal aortic aneurysm: No atrial fibrillation: No chronic fatigue syndrome: No essential tremor: No hyperlipidemia: No hypertension: No Parkinson's disease: No restless leg syndrome: No stroke: No subdural hematoma: No type 1 diabetes mellitus: No type 2 diabetes mellitus: No vitamin B12 deficiency: No vitamin D deficiency: No Surgical History Surgery Date(Month/Year) Tonsilectomy/adenoids 10/11/1997 Other 09/10/1998 Appendectomy (83100) 09/10/1998 Other 10/06/1999
[2025-05-16 18:07] LABS: Hematocrit 49.8 % (42.0-52.0); Hemoglobin 16.7 g/dL (14.0-18.0); Immature Granulocyte Percent A 0.3 % (0-0.5); Lymphocytes Absolute Auto 1.49 K/mm3 (0.9-3.2); Mean Corpuscular HGB Conc 33.5 g/dl (32-36); Mean Corpuscular Hemoglobin 31.4 pg (26-34); Mean Corpuscular Volume 93.6 fl (80-100); Nucleated Red Blood Cells Absolute Auto 0.000 K/mm3 (0.0-0.012); Nucleated Red Blood Cells Perc 0.0 % (0.0-0.2); Platelet Count Result 226 k/mm3 (150-375); Red Blood Count 5.32 M/mm3 (4.6-6.20); White Blood Count 3.8 K/mm3 (4.5-10.0)
[2025-05-16 18:15] LABS: Iron 145 ug/dL (49-181)
[2025-05-16 18:25] LABS: Percent Iron Saturation 48 % (20-50)
[2025-05-16 18:30] LABS: Alanine Aminotransferase 19 U/L (6-50); Albumin Level 4.4 g/dL (3.5-5.1); Alkaline Phosphatase 58 U/L (38-126); Anion Gap 8 mmol/L (4-12); Aspartate Amino Transferase 48 U/L (17-59); Bilirubin,Total 0.9 mg/dL (0.2-1.3); Blood Urea Nitrogen 13 mg/dL (9-20); Calcium 9.5 mg/dL (8.4-10.2); Carbon Dioxide 28 mmol/L (22-30); Chloride 101 mmol/L (98-107); Estimated Glomerular Filt Rate > 60; Glucose 71 mg/dL (65-110); Potassium 3.9 mmol/L (3.4-5.0); Sodium 137 mmol/L (137-145); Total Protein 7.3 g/dL (6.3-8.2)
[2025-05-16 18:57] LABS: Ferritin 232.00 ng/mL (17.9-464)
[2025-05-16 19:06] LABS: Prostate Specific Antigen 1.3 ng/mL (< OR = 4.0)
[2025-05-24 16:08] LABS: Free Testosterone (Direct) 26.4 pg/mL (6.8-21.5)
== END 2025-05-16 08:27 | disposition home or self-care (01) ==
LOC: ANHGOSHLAB 08:27
PROVIDERS: PCP Internal Medicine; Visit Provider Internal Medicine
DX: R06.89 Other abnormalities of breathing (principal); R74.8 Abnormal levels of other serum enzymes; R79.89 Other specified abnormal findings of blood chemistry; Z51.81 Encounter for therapeutic drug level monitoring; Z79.890 Hormone replacement therapy
CPT/HCPCS: 36415; 80053; 82728; 83540; 83550; 84153; 84402; 84403; 85025; G0103